=== PATIENT | female | born 1985 | race Caucasian/White ===

== ENCOUNTER 2020-04-27 06:56 | Emergency (ER) | payer MEDICAID, SELFPAY ==
--- NOTE | ~2020-04-27 | XR_ITS ---
EXAMINATION: XR CHEST CLINICAL INFORMATION: Cough. COMPARISON: None TECHNIQUE: Frontal view of the chest was obtained. FINDINGS: No significant abnormality is noted involving the heart, lungs, mediastinum, bony thorax or soft tissues. XR/XR chest 1V IMPRESSION: No acute cardiopulmonary process.
--- NOTE | 2020-04-27 07:10 | ED.URI ---
HPI - URI/Sore Throat General Chief Complaint: Dyspnea Stated Complaint: DIFF BREATHING Time Seen by Provider: 04/27/20 07:09 Source: patient Mode of arrival: ambulatory Limitations: no limitations History of Present Illness HPI Narrative: 34 yo female smoker c/o runny nose/cough and chest heaviness x 3 weeks has almost 3 COVID tests a week that have been negative consistently due to her job, she notes no OTC medications are helping she has an INH but not sure if it is albuterol, she states she is just not getting better MD elicited complaint: cough and rhinorrhea Onset (ago): week(s) (3) Consistency: constant Severity: moderate Able to tolerate fluids by mouth: Yes Exacerbating factors: supine positioning Relieving factors: nothing Associated symptoms: rhinorrhea, nasal congestion, cough and chest pain Treatments prior to arrival: cold medicine Related Data Previous Rx's Medication Instructions Recorded azithromycin See Rx Instructions .ROUTE 04/27/20 .COMPLEX #6 tab hydrocodone-homatropine 5 ml PO Q6H PRN #60 ml 04/27/20 prednisone 40 mg PO DAILY 4 Days #8 tab 04/27/20 Allergies Allergy/AdvReac Type Severity Reaction Status Date / Time No Known Allergies Allergy Unverified 12/07/19 18:40 Review of Systems Review of Systems: Constitutional : No Weight loss, No Fever, No Chills, pos Fatigue, No Malaise ENT/Mouth : No sore throat, pos Rhinorrhea Eyes: No Eye Pain, No Swelling, No Redness Cardiovascular : pos Chest Pain, pos SOB, No Dyspnea on Exertion Respiratory : pos Cough, No Sputum, No Wheezing Gastrointestinal : No Nausea, No Vomiting, No Diarrhea, No abdominal Pain, No Hematochezia, No Melena Genitourinary : No Dysuria, No Urinary Frequency, No Hematuria, Musculoskeletal : No joint pain, No Myalgias, No Joint Swelling Skin : No Skin Lesions, No rash Neuro : No Weakness, No Numbness, No Dizziness, No Headache PMFSH Past Medical History Attestation statement: The following information was validated with the patient. Medical History No known health problems Social History Social History (Updated 04/27/20 @ 07:17 by Christa Wilhelm DO) Alcohol intake: never Smoking Status: Current every day smoker Use of substances other than those prescribed or required for medical reasons: No Advance Directives: No Advance Directives Information Provided: No Physical Exam Vital Signs: Vital Signs: Last Vital Signs Temp 98.2 F 04/27/20 07:14 Pulse 84 04/27/20 08:07 Resp 18 04/27/20 08:07 BP 102/83 04/27/20 07:14 Pulse Ox 98 04/27/20 08:07 Body Mass Index 29.9 Appearance: Alert. Oriented X3. No acute distress. Eyes: Pupils equal, round and reactive to light. ENT: Pharynx normal. Neck: Normal inspection. Neck supple. CVS: Normal heart rate and rhythm. Pulses normal. Respiratory: No respiratory distress. Breath sounds normal. Abdomen: Soft and nontender. Skin: Skin warm and dry. Normal skin color. Normal skin turgor. Extremities: No lower extremity edema. No calf ttp Neuro: Oriented X 3. No motor deficit. No sensory deficit. MDM - URI/Sore Throat MDM Narrative Medical decision making narrative: 34 yo female smoker with cough and chest tightness/nasal congestion x 3 weeks not responding to OTC medications, has had 3 negative COVID tests weekly due to job at this time suspect bronchitis - start on steroids, INH, antibiotics, CXR for pneumonia ordered, anticipate DC Home Discharge Plan Discharge Clinical Impression: Bronchitis Patient Disposition: Home, Self-Care Instructions: Acute Bronchitis (ED) Additional Instructions: return to ED for any worsening symptoms or concerns CAN USE INHALER 2 TO 4 PUFFS EVERY 4 HOURS NEEDED FOR COUGH, SHORTNESS OF BREATH, WHEEZING Prescriptions: New prednisone 20 mg tablet 40 mg PO DAILY 4 Days Qty: 8 RF: 0 azithromycin 500 mg tablet See Rx Instructions .ROUTE .COMPLEX Qty: 6 RF: 0 hydrocodone-homatropine 5-1.5 mg/5 mL (5 mL) syrup 5 ml PO Q6H PRN (Reason: cough) Qty: 60 RF: 0 Stand Alone Forms: Work/School Release
[2020-04-27 07:14] VITALS: BP 102/83; PULSE 84; RESP 18; TEMP 36.8; O2SAT 99; BMI 29.9
[2020-04-27] MEDS: Albuterol Sulfate 90 MCG 8 GM INHALER 2 PUFF INHALE (07:24)
[2020-04-27] MEDS: predniSONE 20 MG TABLET 40 MG PO (07:24)
--- NOTE | 2020-04-27 08:06 | PC.NURSE ---
ambulating w smooth, steady gait for cxr. medicated per emar.
[2020-04-27 08:07] VITALS: PULSE 84; RESP 18; O2SAT 98
== END 2020-04-27 08:12 | disposition home or self-care (01) ==
PROVIDERS: Emergency Provider Emergency Medicine; PCP Family Medicine
DX: J20.9 Acute bronchitis, unspecified (principal); F17.200 Nicotine dependence, unspecified, uncomplicated
CPT/HCPCS: 71045; 99284